=== PATIENT | male | born 1940 | race Caucasian/White ===

== ENCOUNTER 2016-09-20 16:16 | Emergency (ER) | payer MEDICARE, OTHER ==
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
[2016-09-20 17:11] VITALS: BP 126/82
== END 2016-09-20 17:15 | disposition home or self-care (01) ==
LOC: ED 16:16
DX: S86.112A Strain of other muscle(s) and tendon(s) of posterior muscle group at lower leg level, left leg, initial encounter (principal); X50.0XXA Overexertion from strenuous movement or load, initial encounter; J45.909 Unspecified asthma, uncomplicated; K21.9 Gastro-esophageal reflux disease without esophagitis
CPT/HCPCS: 99283